=== PATIENT | male | born 1955 | race African-American/Black ===

== ENCOUNTER 2024-04-29 21:41 | Observation (INO) ==
--- NOTE | 2024-04-29 22:13 | Emergency Department Note ---
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 On presentation patient is found to have elevated blood pressure of systolic 209. Patient is unsure if he has a history of blood pressure because he states that he never checks his blood pressure. On exam patient is alert and oriented and cooperative. Patient denies pleuritic chest pain, headache, Or palpitation. Patient denies close sick contacts. MD elicited complaint: Reports nausea, vomiting, diarrhea and abdominal pain Onset (ago): hour(s) Description of vomiting: Reports watery Description of diarrhea: Reports watery Associated nausea: Yes Associated abdominal pain: Yes Location of pain: Reports epigastric Radiation: Reports diffuse Pain consistency: Reports intermittent Severity: mild Quality: Reports cramping Exacerbating factors: Reports eating Relieving factors: Reports none Context: Reports possible food poisoning and sick contacts Associated symptoms: Reports myalgias and nausea/vomiting Related Data Allergies Allergy/AdvReac Type Severity Reaction Status Date / Time No Known Drug Allergies Allergy Verified 04/29/24 22:38 Review of Systems Status of ROS 10 or more systems reviewed and unremark able except as noted in history and below Constitutional Denies: fever, chills, change in weight, fatigue, malaise or night sweats Eyes Denies: change in vision, blurry vision, blind spots, light sensitivity or eye discomfort Ears, nose, mouth, and throat Denies: throat pain, neck pain, throat swelling, difficulty swallowing, hoarseness or mouth pain Cardiovascular Denies: chest pain, palpitations, edema, swelling of feet/ankles, lightheadedness or shortness of breath with exertion Respiratory Reports: shortness of breath; Denies: cough, wheezing, stridor, pain on inspiration or change in phlegm color Gastrointestinal Reports: nausea, vomiting and diarrhea; Denies: abdominal pain, coffee grounds in vomit or heartburn Genitourinary Denies: painful urination, urinary frequency, urinary urgency, blood in urine or genital pain Musculoskeletal Denies: back pain, neck pain, extremity pain, extremity swelling, joint pain or limited range of motion Integumentary/Breast Denies: rash, itching, redness, skin pain, skin tenderness, skin swelling or sores Neurological Denies: headache, numbness in extremities, weakness in extremities or lack of coordination Psychiatric Denies: anxiety, mood swings, panic attacks, change in sleep pattern or hopelessness Endocrine Denies: excessive urination, excessive thirst, fatigue, cold intolerance or excessive sweating Hematologic/Lymphatic Denies: easy bruising, easy bleeding or enlarged lymph nodes Allergic/Immunologic Denies: hives, throat swelling, tongue swelling or facial swelling Exam Constitutional: normal general appearance, no apparent distress, average body habitus, no limitations and alert Vital Signs - 24 hr 04/29/24 22:24 04/30/24 00:54 04/30/24 01:24 Blood Pressure 206/144 159/112 157/112 HENMT: normocephalic, head/scalp atraumatic, hearing grossly normal bilaterally and external ears normal Eyes: PERRL, EOMs intact bilaterally, conjunctivae normal, no scleral icterus and no papilledema Neck/C-Spine: visual inspection normal, trachea midline, cervical spine nontender and cervical full ROM noted Lymph: no lymphadenopathy noted and no lymphedema noted Chest: inspection of chest normal and palpation of chest normal Respiratory: breath sounds equal bilaterally, normal respiratory effort, clear to auscultation bilaterally and no wheezes Cardiovascular: normal heart rate noted, regular rhythm noted, no gallop, no rub, no murmur and no JVD Gastrointestinal: abdomen normal to inspection, abdomen soft to palpation and nontender to palpation Genitourinary: no CVA tenderness, bladder normal to palpation and external appearance normal Back/Pelvis: spine normal to inspection, no thoracic spine tenderness and no lumbar spine tenderness Extremities: normal to inspection, normal to palpation and no tenderness 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 On presentation patient is found to have elevated blood pressure of systolic 209. Patient is unsure if he has a history of blood pressure because he states that he never checks his blood pressure. Will obtain chest x-ray, No acute findings noted, This is a preliminary findings pending radiologist reading. Patient labs are significant for, Elevated creatinine kinase, hyponatremia, elevated creatinine. Vital signs are significant for blood pressure of 206/144 We have treated the patient with clonidine With significant improvement in his blood pressure. We have placed the patient on fluid hydration we will recheck the electrolytes after 2 hours. Patient labs are trending down including creatinine kinase and lactate. Will discharge the patient home with instruction to increase p.o. intake. Vital Signs Vital signs: Vital Signs Blood Pressure 206/144 04/29/24 22:24 Blood Pressure 157/112 04/30/24 01:24 Discharge Plan Discharge Patient Disposition: Admitted As Observation Condition: Improved Clinical Impression: Dehydration, Acute hyponatremia, BHAVIN (acute kidney injury), Transaminitis, Acute lactic acidosis, Malnutrition, Hypertensive emergency Time of Disposition: 03:36
[2024-04-29] MEDS: cloNIDine HCL 0.1 MG TABLET PO ONE (22:24)
[2024-04-29 22:44] LABS: Basophils%(Percent) Auto 0.8 (0.0-1.3); Eosinophils%(Percent) Auto 0.1 % (0.0-4.0); Granulocytes % - Auto 35.1 % (49.1-73.1); Granulocytes#(Absolute)- Auto 1.6 (2.0-6.2); Hematocrit 43.2 % (41.3-50.1); Mean Corpuscular Volume 80.8 fl (81.9-96.5); Monocytes #(Absolute)- Auto 0.4 (0.2-0.8); Monocytes %(Percent)- Auto 7.7 % (4.5-10.7); Platelet Count 197 K/uL (142-355); White Blood Count 4.6 K/uL (3.7-9.6)
[2024-04-29 22:59] LABS: Potassium 4.5 mmol/L (3.6-5.2)
[2024-04-29] MEDS ORDERED: 0.9 % SODIUM CHLORIDE 1000 ML 1,000 ML IV ONE (23:37)
[2024-04-29] MEDS: 0.9 % SODIUM CHLORIDE 1000 ML 1,000 ML IV ONE (23:37)
[2024-04-30] MEDS ORDERED: 0.9 % SODIUM CHLORIDE 1000 ML 1,000 ML IV SCH ×2 (00:30→01:30)
[2024-04-30] MEDS ORDERED: 0.9 % SODIUM CHLORIDE 1000 ML 1,000 ML IV ONE (00:39)
[2024-04-30] MEDS: HYDRALAZINE HCL 20 MG/ML VIAL INJ ONE (00:54)
[2024-04-30] MEDS: 0.9 % SODIUM CHLORIDE 1000 ML 1,000 ML IV ONE ×3 (00:56→07:02)
[2024-04-30 03:10] LABS: Potassium 4.3 mmol/L (3.6-5.2)
[2024-04-30] MEDS ORDERED: ACETAMINOPHEN 500 MG TABLET PO PRN (04:09)
[2024-04-30] MEDS: 0.9 % SODIUM CHLORIDE 1000 ML 1,000 ML IV SCH ×2 (07:05→15:38)
[2024-04-30 07:19] LABS: Potassium 4.3 mmol/L (3.6-5.2)
[2024-04-30] MEDS ORDERED: LOSARTAN POTASSIUM 50 MG TABLET ONE (10:19)
[2024-04-30] MEDS ORDERED: HYDRALAZINE HCL 20 MG/ML VIAL ONE (10:19)
[2024-04-30] MEDS: HYDRALAZINE HCL 20 MG/ML VIAL IVP ONE (10:23)
[2024-04-30] MEDS: LOSARTAN POTASSIUM 50 MG TABLET PO SCH (10:24)
[2024-04-30] MEDS ORDERED: NITROGLYCERIN 1 GM OINT...G. TD ONE (11:43)
[2024-04-30] MEDS: NITROGLYCERIN 1 GM OINT...G. TD SCH (12:16)
[2024-04-30] MEDS: METOPROLOL TARTRATE 25 MG TABLET PO SCH (15:38)
[2024-04-30] MEDS: ENOXAPARIN SODIUM 40 MG/0.4 ML SYRINGE SUBQ SCH (15:38)
[2024-04-30 15:41] LABS: Urine Appearance CLEAR (CLEAR); Urine Blood NEGATIVE (NEG - TRACE); Urine Color YELLOW (STRAW/YELL.); Urine Urobilinogen Normal (NORMAL)
[2024-04-30 15:44] LABS: Amphetamine Screen Urine NEG. (NEGATIVE); Cannabinoid Screen Urine NEG. (NEGATIVE); Cocaine Screen Urine NEG. (NEGATIVE); Methadone Screen Urine NEG. (NEGATIVE); Opiate Screen Urine NEG. (NEGATIVE)
[2024-04-30] MEDS: PANTOPRAZOLE SODIUM 40 MG TABLET.DR PO SCH (21:17)
[2024-05-01 05:38] LABS: Basophils%(Percent) Auto 0.8 (0.0-1.3); Eosinophils%(Percent) Auto 0.2 % (0.0-4.0); Granulocytes % - Auto 28.4 % (49.1-73.1); Hematocrit 36.9 % (41.3-50.1); Mean Corpuscular Volume 79.9 fl (81.9-96.5); Monocytes #(Absolute)- Auto 0.3 (0.2-0.8); Platelet Count 169 K/uL (142-355); White Blood Count 3.5 K/uL (3.7-9.6)
[2024-05-01 05:54] LABS: Potassium 3.8 mmol/L (3.6-5.2)
[2024-05-01] MEDS: 0.9 % SODIUM CHLORIDE 1000 ML 1,000 ML IV ONE (08:23)
[2024-05-01] MEDS: ASPIRIN 81 MG TABLET.DR PO SCH (11:21)
[2024-05-01] MEDS: SPIRONOLACTONE 50 MG TABLET PO SCH (11:21)
[2024-05-01] MEDS: METOPROLOL TARTRATE 25 MG TABLET PO SCH (11:21)
[2024-05-01] MEDS: AMLODIPINE BESYLATE 5 MG TABLET PO SCH (11:21)
[2024-05-01] MEDS: ALBUMIN HUMAN 25% 100 ML IV SCH (11:22)
[2024-05-01 11:33] VITALS: BP 182/80; PULSE 109; RESP 20; TEMP 98.4
--- NOTE | 2024-05-01 11:45 | History & Physical Report ---
H&P: HPI History of Present Illness Chief complaint: DIFFICULTY BREATHING Narrative: The patient is 68 years old male who presented to the ED with complaint of shortness of breath, decreased appetite, nausea and vomiting with diarrhea for the past 3 days. On presentation patient is found to have elevated blood pressure of systolic 209. Patient is unsure if he has a history of blood pressure because he states that he never checks his blood pressure. On exam patient is alert and oriented and cooperative. Patient denies pleuritic chest pain, headache, Or palpitation. Patient denies close sick contacts. Admitted to med/surg for observation and treatment. Review of Systems Status of ROS 10 or more systems reviewed and unremark able except as noted in history and below Constitutional Denies: fever, chills, change in weight, fatigue, malaise or night sweats Eyes Denies: change in vision, blurry vision, blind spots, light sensitivity or eye discomfort Ears, nose, mouth, and throat Denies: throat pain, neck pain, throat swelling, difficulty swallowing, hoarseness or mouth pain Cardiovascular Reports: shortness of breath with exertion; Denies: chest pain, palpitations, edema, swelling of feet/ankles or lightheadedness Respiratory Reports: shortness of breath; Denies: cough, wheezing, stridor, pain on inspiration or change in phlegm color Gastrointestinal Reports: nausea, vomiting and diarrhea; Denies: abdominal pain, coffee grounds in vomit, heartburn or difficulty swallowing Genitourinary Denies: painful urination, urinary frequency, urinary urgency, blood in urine or genital pain Musculoskeletal Denies: back pain, neck pain, extremity pain, extremity swelling, joint pain or limited range of motion Integumentary/Breast Denies: rash, itching, redness, skin pain, skin tenderness, skin swelling or sores Neurological Denies: headache, numbness in extremities, weakness in extremities or lack of coordination Psychiatric Denies: anxiety, mood swings, panic attacks, change in sleep pattern or hopelessness Endocrine Denies: excessive urination, excessive thirst, fatigue, cold intolerance or excessive sweating Hematologic/Lymphatic Denies: easy bruising, easy bleeding or enlarged lymph nodes Allergic/Immunologic Denies: hives, throat swelling, tongue swelling, facial swelling or wheezing [facility] Medical History (Updated 05/01/24 @ 11:16 by SARIAH Butler) Hypertension Systolic and diastolic CHF w/reduced LV function, NYHA class 4 GERD with esophagitis No pertinent past medical history Surgical History (Updated 04/30/24 @ 05:53 by Cindy Fitzpatrick RN) No significant past surgical history Social History Highest level of school completed/degree received: decline to answer Meds Home Medications and Allergies Home Medications Medication Instructions Recorded Confirmed Type amlodipine 5 mg tablet 5 mg PO DAILY htn #30 tabs 05/01/24 Rx aspirin 81 mg tablet,delayed 81 mg PO DAILY htn #30 tabs 05/01/24 Rx release losartan 50 mg tablet 100 mg (2 x 50 mg) PO DAILY htn 05/01/24 Rx #30 tabs metoprolol tartrate 25 mg tablet 50 mg (2 x 25 mg) PO BID htn #60 05/01/24 Rx tabs pantoprazole 40 mg tablet,delayed 40 mg PO BID gerd #30 tabs 05/01/24 Rx release spironolactone 50 mg tablet 25 mg (1/2 x 50 mg) PO DAILY PRN 05/01/24 Rx chf #30 tabs Allergies Allergy/AdvReac Type Severity Reaction Status Date / Time No Known Drug Allergies Allergy Verified 04/30/24 05:04 Exam Exam: Patient seen in ED room at time of exam due to holding for available room in med/surg department. Constitutional: normal general appearance, no apparent distress, abnormal body habitus (overweight), no limitations and alert Vital Signs - 24 hr 04/30/24 12:00 04/30/24 12:16 04/30/24 12:17 Temperature 97.9 F Pulse Rate 83 Pulse Rate [Left] Respiratory Rate 18 Blood Pressure 150/77 150/78 150/78 Blood Pressure [Le ft Arm] Pulse Oximetry 96 Oxygen Delivery Me thod 04/30/24 15:17 04/30/24 15:57 04/30/24 17:46 Temperature 97.8 F Pulse Rate Pulse Rate [Left] 71 Respiratory Rate 20 Blood Pressure 145/90 145/82 Blood Pressure [Le ft Arm] 145/82 Pulse Oximetry 98 Oxygen Delivery Me thod Room Air 04/30/24 18:34 04/30/24 20:00 05/01/24 00:00 Temperature 98.1 F 97.5 F L Pulse Rate Pulse Rate [Left] 75 74 Respiratory Rate 18 17 Blood Pressure 142/80 Blood Pressure [Le ft Arm] 128/89 146/100 Pulse Oximetry 99 100 Oxygen Delivery Me thod Room Air Room Air 05/01/24 04:00 05/01/24 08:00 05/01/24 09:13 Temperature 98.3 F 97.4 F L Pulse Rate 87 Pulse Rate [Left] 74 87 Respiratory Rate 18 19 Blood Pressure 170/90 Blood Pressure [Le ft Arm] 154/86 172/90 Pulse Oximetry 99 98 Oxygen Delivery Me thod Room Air Room Air 05/01/24 09:13 Temperature Pulse Rate Pulse Rate [Left] Respiratory Rate Blood Pressure 170/90 Blood Pressure [Le ft Arm] Pulse Oximetry Oxygen Delivery Me thod HENMT: normocephalic, head/scalp atraumatic, hearing grossly normal bilaterally and external ears normal Eyes: PERRL, EOMs intact bilaterally, conjunctivae normal, no scleral icterus and no papilledema Neck/C-Spine: visual inspection normal, trachea midline, cervical spine nontender and cervical full ROM noted Lymph: no lymphadenopathy noted and no lymphedema noted Chest: inspection of chest normal and palpation of chest normal Respiratory: breath sounds equal bilaterally, normal respiratory effort, clear to auscultation bilaterally and no wheezes Cardiovascular: normal heart rate noted, regular rhythm noted, no gallop, no rub, no murmur and no JVD Gastrointestinal: abdomen normal to inspection, abdomen soft to palpation and nontender to palpation Genitourinary: no CVA tenderness, bladder normal to palpation and external appearance normal Back/Pelvis: spine normal to inspection, no thoracic spine tenderness and no lumbar spine tenderness Extremities: normal to inspection, normal to palpation and no tenderness 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 and no focal motor deficit noted Psychiatry: mental status grossly normal, oriented x3, thought process normal, psychomotor activity normal and memory normal Skin: skin color normal, no rash, no lesions, no ecchymosis noted and no wounds Assessment and Plan Assessment and Plan (1) Hypertensive emergency: Assessment and Plan: Aspirin 81 mg PO Daily Hydralazine 10 mg INJ ONCE Code(s): I16.1 - Hypertensive emergency (2) Systolic and diastolic CHF w/reduced LV function, NYHA class 4: Assessment and Plan: Enoxaparin Sodium 40 mg SUBQ DAILY Code(s): I50.40 - Unspecified combined systolic (congestive) and diastolic (congestive) heart failure (3) Hypertension: Assessment and Plan: Losartan Potassium 100 mg PO DAILY Metoprolol Tartrate 50 mg PO BID Qualifiers: Hypertension type: primary hypertension Qualified Code(s): I10 - Essential (primary) hypertension Code(s): I10 - Essential (primary) hypertension (4) Pleural effusion: Assessment and Plan: Amlodipine Besylate 5 mg PO DAILY Code(s): J90 - Pleural effusion, not elsewhere classified (5) Rhabdomyolysis: Qualifiers: Rhabdomyolysis type: non-traumatic Qualified Code(s): M62.82 - Rhabdomyolysis Code(s): M62.82 - Rhabdomyolysis (6) Dehydration: Code(s): E86.0 - Dehydration (7) Acute on chronic renal insufficiency: Assessment and Plan: IV Fluids and monitoring labs. Code(s): N28.9 - Disorder of kidney and ureter, unspecified; N18.9 - Chronic kidney disease, unspecified (8) Liver function study, abnormal: Assessment and Plan: Spironolactone 25 mg PO Daily Code(s): R94.5 - Abnormal results of liver function studies (9) Hyperbilirubinemia: Assessment and Plan: Correcting liver function. Code(s): E80.6 - Other disorders of bilirubin metabolism (10) Anemia: Qualifiers: Anemia type: unspecified type Qualified Code(s): D64.9 - Anemia, unspecified Code(s): D64.9 - Anemia, unspecified (11) GERD with esophagitis: Assessment and Plan: Pantoprazole Sodium 40 mg PO BID Qualifiers: Esophagitis bleeding: unspecified whether hemorrhage Qualified Code(s): K21.00 - Gastro-esophageal reflux disease with esophagitis, without bleeding Code(s): K21.00 - Gastro-esophageal reflux disease with esophagitis, without bleeding (12) Hyponatremia: Assessment and Plan: Resolved with fluids. Sodium Chloride 1,000 mls @ 125 mls/hr IV CONT. Code(s): E87.1 - Hypo-osmolality and hyponatremia Plan Liver Ultrasound ordered due to abnormal liver enzyme levels. Urinalysis, BNP, and Hepatitis Panel ordered. Treating Hypertension Emergency with Hydralazine 10 mg INJ ONCE and Hypertension with Losartan Potassium 100 mg PO, for maintenance. Patient to be moved to med/surg department as soon as room is available. Results Labs Labs: CBC WBC 3.5 K/uL (3.7-9.6) L 05/01/24 05:15 RBC 4.6 M/uL (4.40-5.80) 05/01/24 05:15 Hgb 12.3 gm/dL (14.0-17.4) L 05/01/24 05:15 Hct 36.9 % (41.3-50.1) L 05/01/24 05:15 MCV 79.9 fl (81.9-96.5) L 05/01/24 05:15 MCH 26.6 pg (27.6-33.7) L 05/01/24 05:15 MCHC 33.3 g/dl (33.0-35.7) 05/01/24 05:15 RDW 16.0 % (11.0-14.8) H 05/01/24 05:15 Plt Count 169 K/uL (142-355) 05/01/24 05:15 MPV 8.1 fl (6.0-10.4) 05/01/24 05:15 Gran % 28.4 % (49.1-73.1) L 05/01/24 05:15 Lymph % (Auto) 60.6 % (17.6-39.05) H 05/01/24 05:15 Cataño % (Auto) 10.0 % (4.5-10.7) 05/01/24 05:15 Eos % (Auto) 0.2 % (0.0-4.0) 05/01/24 05:15 Baso % (Auto) 0.8 (0.0-1.3) 05/01/24 05:15 Lymph # (Auto) 2.1 (0.8-2.9) 05/01/24 05:15 Cataño # (Auto) 0.3 (0.2-0.8) 05/01/24 05:15 Eos # (Auto) 0.0 (0.0-0.3) 05/01/24 05:15 Baso # (Auto) 0.0 (0.0-0.1) 05/01/24 05:15 Absolute Gran (auto) 1.0 (2.0-6.2) L 05/01/24 05:15 BMP Sodium 141 mmol/L (136-145) 05/01/24 05:15 Potassium 3.8 mmol/L (3.6-5.2) 05/01/24 05:15 Chloride 108.0 mmol/L (98-107) H 05/01/24 05:15 Carbon Dioxide 27 mmol/L (21-32) 05/01/24 05:15 Anion Gap 6.0 mEq/L (4-14) 05/01/24 05:15 BUN 21 mg/dL (7-18) H 05/01/24 05:15 Creatinine 1.5 mg/dL (0.6-1.3) H 05/01/24 05:15 Estimated GFR 51.0 (>59.9) 05/01/24 05:15 Glucose 85 mg/dL (70-110) 05/01/24 05:15 Calcium 7.8 mg/dL (8.5-10.1) L 05/01/24 05:15 Phosphorus 2.6 mg/dL (2.5-4.9) 05/01/24 05:15 Magnesium 1.8 mg/dL (1.8-2.4) 05/01/24 05:15 Total Bilirubin 1.18 mg/dL (0.0-1.0) H 05/01/24 05:15 AST 61 U/L (15-37) H 05/01/24 05:15 ALT 63 U/L (30-65) 05/01/24 05:15 Alkaline Phosphatase 131 U/L (50-136) 05/01/24 05:15 Total Protein 5.5 g/dL (6.4-8.2) L 05/01/24 05:15 Albumin 2.1 g/dL (3.4-5.0) L 05/01/24 05:15 Cardiac Enzymes Troponin I High Sens 98.60 ng/L (4.0-60.4) H* 04/30/24 17:45 Liver Function Total Bilirubin 1.18 mg/dL (0.0-1.0) H 05/01/24 05:15 AST 61 U/L (15-37) H 05/01/24 05:15 ALT 63 U/L (30-65) 05/01/24 05:15 Alkaline Phosphatase 131 U/L (50-136) 05/01/24 05:15 Total Protein 5.5 g/dL (6.4-8.2) L 05/01/24 05:15 Albumin 2.1 g/dL (3.4-5.0) L 05/01/24 05:15 Urine Urine Color Yellow (STRAW/YELL.) 04/30/24 14:24 Urine Appearance Clear (CLEAR) 04/30/24 14:24 Ur Specific Steele 1.010 (1.001-1.035) 04/30/24 14:24 Urine Protein Negative (NEGATIVE) 04/30/24 14:24 Urine Glucose (UA) Normal (NORMAL) 04/30/24 14:24 Urine Ketones Negative (NEGATIVE) 04/30/24 14:24 Urine Occult Blood Negative (NEG - TRACE) 04/30/24 14:24 Urine Nitrite Negative (NEGATIVE) 04/30/24 14:24 Urine Bilirubin Negative (NEGATIVE) 04/30/24 14:24 Urine Urobilinogen Normal (NORMAL) 04/30/24 14:24 Ur Leukocyte Esterase Negative (NEGATIVE) 04/30/24 14:24 Imaging Imaging ordered: Chest x-ray Radiologist's impression: Portable chest Date of Service: 04/29/24 HISTORY: Shortness of breath COMPARISON: None FINDINGS: Heart is enlarged. No congestive heart failure is noted. Aorta is ectatic. Sarah are normal. Lung burns are clear. No pleural effusion or pneumothorax. Bony thorax is unremarkable with exception of bilateral AC joint degenerative joint disease. IMPRESSION: Cardiomegaly without congestive heart failure No definite acute infiltrates
--- NOTE | 2024-05-02 10:13 | Discharge Summary ---
DS: Providers Provider Date of admission: 04/30/24 04:07 Primary care physician: NO PCP Provider Admitting clinician: Yeison Soler Attending physician on admission: Dee Lind Consults: 04/30/24 15:35 Consult to Pharmacy Routine Comment: Consulting Provider: Physician Instructions: Reason for consultation: eliquis bid new onset atrial fib renal dose please Attending physician on discharge: Dee Lind Discharging clinician: Dee Lind Anticipated date of discharge: 05/02/24 DS: Diagnosis Discharge Diagnosis (1) Hypertensive emergency: (2) Systolic and diastolic CHF w/reduced LV function, NYHA class 4: (3) Hypertension: Qualifiers: Hypertension type: primary hypertension Qualified Code(s): I10 - Essential (primary) hypertension (4) Pleural effusion: (5) Rhabdomyolysis: Qualifiers: Rhabdomyolysis type: non-traumatic Qualified Code(s): M62.82 - Rhabdomyolysis (6) Dehydration: (7) Acute on chronic renal insufficiency: (8) Liver function study, abnormal: (9) Hyperbilirubinemia: (10) Anemia: Qualifiers: Anemia type: unspecified type Qualified Code(s): D64.9 - Anemia, unspecified (11) GERD with esophagitis: Qualifiers: Esophagitis bleeding: unspecified whether hemorrhage Qualified Code(s): K21.00 - Gastro-esophageal reflux disease with esophagitis, without bleeding (12) Hyponatremia: Plan Discharge patient home for self care. DS: Summary Hospital Course Hospital Course: 68 years old male who presented to the ED with complaint of shortness of breath, decreased appetite, nausea and vomiting with diarrhea for the past 3 days. On presentation patient is found to have elevated blood pressure of systolic 209. Patient is unsure if he has a history of blood pressure because he states that he never checks his blood pressure. Will obtain chest x-ray, No acute findings noted, This is a preliminary findings pending radiologist reading. Patient labs are significant for, Elevated creatinine kinase, hyponatremia, elevated creatinine. Vital signs are significant for blood pressure of 206/144 We have treated the patient with clonidine With significant improvement in his blood pressure. We have placed the patient on fluid hydration we will recheck the electrolytes after 2 hours. Patient labs are trending down including creatinine kinase and lactate. Will discharge the patient home with instruction to increase p.o. intake. Patient has been provided with resources for a local clinic that helps low income and uninsured patients get the help they need. Provider recommends he follows up with a Check Processor due to EF of 30%, Nephrology due to kidney function, Hygiene Assistant, and PCP follow up appointment in 5-7 days of discharge. Status at Discharge Functional status at discharge: independent ambulation Overall status at discharge: patient is progressing back to baseline Time Spent with Patient Time attestation: Total time spent providing and/or coordinating discharge services: Time spent: greater than 30 minutes Exam Exam: Patient in low mathias's position upon entering room for exam. Constitutional: normal general appearance, no apparent distress, abnormal body habitus (overweight), no limitations and alert Vital Signs - 24 hr 05/01/24 11:32 Temperature 98.4 F Pulse Rate [Left] 109 H Respiratory Rate 20 Blood Pressure [Le ft Arm] 182/80 Pulse Oximetry 99 Oxygen Delivery Me thod Room Air HENMT: normocephalic, head/scalp atraumatic, hearing grossly normal bilaterally and external ears normal Eyes: PERRL, EOMs intact bilaterally, conjunctivae normal, no scleral icterus and no papilledema Neck/C-Spine: visual inspection normal, trachea midline, cervical spine nontender and cervical full ROM noted Lymph: no lymphadenopathy noted and no lymphedema noted Chest: inspection of chest normal and palpation of chest normal Respiratory: breath sounds equal bilaterally, normal respiratory effort, clear to auscultation bilaterally and no wheezes Cardiovascular: normal heart rate noted, regular rhythm noted, no gallop, no rub, no murmur and no JVD Gastrointestinal: abdomen normal to inspection, abdomen soft to palpation and nontender to palpation Genitourinary: no CVA tenderness, bladder normal to palpation and external appearance normal Back/Pelvis: spine normal to inspection, no thoracic spine tenderness and no lumbar spine tenderness Extremities: normal to inspection, normal to palpation and no tenderness 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 No congestive heart failure is noted. Aorta is ectatic. Sarah are normal. Lung burns are clear. No pleural effusion or pneumothorax. Bony thorax is unremarkable with exception of bilateral AC joint degenerative joint disease. IMPRESSION: Cardiomegaly without congestive heart failure No definite acute infiltrates Liver US: Radiologist's impression: US LIVER Date of Service: 04/30/24 HISTORY: elevated enzymes elevated enzymes; COMPARISON: None TECHNIQUE: images made by the washing machine loader and puller. Millan scale and color-flow images of the right upper quadrant were obtained. FINDINGS: The liver has normal echogenicity and size. No mass or intrahepatic biliary duct dilatation is present. The intrahepatic inferior vena cava was imaged. The visualized hepatic veins are patent with blood flow toward the right atrium. The portal vein is patent with blood flow toward the liver. The hepatic artery was patent. The pancreas was not seen because of overlying bowel gas. The gallbladder is contracted with no stones, wall thickening, or pericholecystic fluid. No extrahepatic biliary duct dilatation; common duct is normal. The right kidney is normal in size. The cortex has increased echogenicity consistent with medical renal disease. No hydronephrosis. Multiple simple cysts are present. Largest measures 3.7 cm. Small volume ascites is noted as perihepatic fluid. I believe there is also a small right pleural effusion. IMPRESSION: 1. Small volume ascites and right pleural effusion 2. Medical renal disease 3. Multiple simple cysts right kidney Discharge Plan Discharge Disposition: Home, Self-Care Condition: Improved Discharge Medications: New spironolactone 50 mg Tablet 25 mg PO DAILY PRN (Reason: chf) Qty: 30 0RF metoprolol tartrate 25 mg Tablet 50 mg PO BID Qty: 60 0RF pantoprazole 40 mg Tablet,Delayed Release (Dr/Ec) 40 mg PO BID Qty: 30 0RF losartan 50 mg Tablet 100 mg PO DAILY Qty: 30 0RF aspirin 81 mg Tablet,Delayed Release (Dr/Ec) 81 mg PO DAILY Qty: 30 0RF amlodipine 5 mg Tablet 5 mg PO DAILY Qty: 30 0RF Discharge Orders: Discharge Order (Routine); Ordered 05/01/24 Ordered By: Dee Lind Activity: as per the cardiac rehab and return to work once cleared by your PCP/specialist Diet: low fat, low cholesterol Diet Detail: 1500 cc fluid restriction Interventions: Discharge Assessment Last Done: 05/01/24 13:45 MED/SURG & ICU Observation Charge Sheet Last Done: 05/01/24 06:08 Patient Instructions: Dehydration (GEN), Rhabdomyolysis (GEN), Chronic Hypertension (GEN) Activity Restrictions/Additional Instructions: cardiology, GI medicine, Nephrology [facility] carotids, aneurysm abdominal screening, renal ultra sound, nuclear stress test BP/pulse/weight daily Journal to carry to appointments for doctors get copy of imaging and echo and labs to carry to appointments as well needs repeat CBC and CMP and BNPeptide in 5-7 days with doctor PCP follow up as an out patient Forms: Portal/Health Info Access Inst Follow-Ups: Provider,NO PCP [Primary Care Provider] - Discharge Date/Time: 05/01/24 17:07
== END 2024-05-01 17:07 | disposition home or self-care (01) ==
LOC: EDHOLD 21:41 → ED 21:41 → EDHOLD 04-30 04:00 → MS 04-30 15:20
PROVIDERS: ADMIT Physician Assistant; ATTEND Family Medicine
DX: E46 Unspecified protein-calorie malnutrition; R94.5 Abnormal results of liver function studies; E87.1 Hypo-osmolality and hyponatremia; N18.9 Chronic kidney disease, unspecified; R11.2 Nausea with vomiting, unspecified; D64.89 Other specified anemias; M62.82 Rhabdomyolysis; R19.7 Diarrhea, unspecified; K21.00 Gastro-esophageal reflux disease with esophagitis, without bleeding; E87.21 Acute metabolic acidosis; J90 Pleural effusion, not elsewhere classified; I11.0 Hypertensive heart disease with heart failure; R74.01 Elevation of levels of liver transaminase levels; E86.0 Dehydration; E80.6 Other disorders of bilirubin metabolism; I12.9 Hypertensive chronic kidney disease with stage 1 through stage 4 chronic kidney disease, or unspecified chronic kidney disease; N28.89 Other specified disorders of kidney and ureter; N17.8 Other acute kidney failure; R06.02 Shortness of breath; I50.40 Unspecified combined systolic (congestive) and diastolic (congestive) heart failure; I16.1 Hypertensive emergency